=== PATIENT | male | born 1990 | race Caucasian/White ===

== ENCOUNTER 2018-10-28 08:18 | Emergency (ER) | payer OTHER ==
[~2018-10-28] VITALS: Ht 188 cm; Wt 125.2 kg
[~2018-10-28 08:18] MED LIST: ADVIL100 M2 PO; AMOXICILLIN 50500 M1 PO; BACTRIM DS TAB1 EACH PO; FIRST-BXN MOUT237 ML MM; HYDROCODON-ACE1 EAC8 PO; HYDROCODON-ACE1 EACH PO; HYDROCODONE-AP1 EAC6 PO; IBUPROFEN 800800 MG PO; INDOMETHACIN 2525 MG; KEFLEX500 M1; KEFLEX500 M1 PO; MEDROLDOSEPACK PO; NOHOMEMEDICATIONS; NORCO 5-325 TA1 EACH PO; PENICILLIN VK500 MG PO; PERIDEX 0.12%473 M1 SSP; ZPAK PO
[2018-10-28 08:40] LABS: HEMATOCRIT 43.6 % (42.0-52.0); HEMOGLOBIN 15.3 gm/dL (14.0-18.0); MCH 30.4 pg (26.0-34.0); MCV 86.9 fL (80.0-100.0); MPV 7.2 fl. (7.2-11.1); NUCLEATED RBCS 0 /100WBC; PLATELET COUNT* 308 thou/uL (150-400); RBC 5.02 mil/uL (4.50-6.00)
[2018-10-28 08:50] LABS: ANION GAP 10 mmol/L (7-16); BUN 17 mg/dL (7-18); CALCIUM 9.1 mg/dL (8.5-10.1); CHLORIDE 104 mmol/L (98-107); CO2 27 mmol/L (21-32); GLUCOSE 93 mg/dL (70-99); POTASSIUM 3.5 mmol/L (3.5-5.1); SODIUM 141 mmol/L (136-145)
[2018-10-28 08:51] LABS: APTT 25.9 Seconds (25.0-31.3); PROTIME 10.2 Seconds (9.20-11.50)
[2018-10-28 09:08] LABS: ALBUMIN 4.2 g/dL (3.4-5.0); ALKALINE PHOSPHATASE 86 U/L (46-116); LIPASE 61 U/L (73-393); MAGNESIUM 2.1 mg/dL (1.8-2.4); NT-PRO BRAIN NAT PEPTIDE 38 pg/mL (<300); SGOT 18 U/L (15-37); SGPT 34 U/L (30-65); TOTAL BILIRUBIN 0.5 mg/dL (<0.1-1.0); TOTAL PROTEIN 7.3 g/dL (6.4-8.2); TROPONIN-I LEVEL <0.06 ng/mL (<0.06)
[2018-10-28 09:14] VITALS: BP 117/74
[2018-10-28 09:35] LABS: ABSOLUTE EOSINOPHILS 0.1 thou/uL (0.0-0.7); ABSOLUTE LYMPHOCYTES 3.6 thou/uL (0.8-5.3); ABSOLUTE MONOCYTES 0.3 thou/uL (0.0-1.2); ABSOLUTE NEUTROPHILS 6.9 thou/uL (1.6-8.1); PLATELET ESTIMATE ADEQUATE
--- NOTE | 2018-10-29 17:00 | EKG ---
[place] [address] ELECTROCARDIOGRAM REPORT Name: QUINTEN SOARES Room: [facility]#: [id number] Admission: 10/28/18 Attend Phys: Discharge: 10/28/18 Date of : 88 Report #: [id number] THIS REPORT FOR: //name// [facility] ED Test Date: 2018-10-28 Test Time: 08:22:48 Pat Name: QUINTEN SOARES Department: Room: Gender: M Lighting Engineer: : 1990 Requested By: Yovany Merida Order Number: [id number] MD: Villa Scott Measurements Intervals [place] Rate: 97 P: 46 AK: 154 QRS: 92 QRSD: 103 T: 12 QT: 334 QTc: 425 Interpretive Statements Sinus rhythm Ventricular premature complex Borderline right axis deviation Borderline T abnormalities, anterior leads Compared to ECG 01/06/2017 11:58:25 Ventricular premature complex(es) now present Sinus tachycardia no longer present T-wave abnormality still present Electronically Signed On 10-29-2018 16:59:58 CDT by Villa Scott [email or web address] <ELECTRONICALLY SIGNED> By: Villa Scott MD, [facility] 10/29/18 1659 0822 Villa Scott MD, [facility] /EPI
== END 2018-10-28 09:15 | disposition home or self-care (01) ==
LOC: M.ERS 08:18
PROVIDERS: Family Medicine
DX: R07.89 Other chest pain (principal); F17.210 Nicotine dependence, cigarettes, uncomplicated; Z90.89 Acquired absence of other organs